=== PATIENT | male | born 1960 ===

== ENCOUNTER 2023-11-09 13:48 | Outpatient (REF) | payer OTHER, SELFPAY ==
--- NOTE | 2023-11-09 13:20 | PROST_PTH ---
PATIENT: David Crystal LOC: [facility] U#:[id number] AGE/SX: 62/M ROOM: RE11/09/[address]: Tony Cross MD : 1960 BED: DIS: 11/09/2023 SPEC #: [id number] RECD: 11/12/23 12:50 STATUS: TISH REConchis #: [id number] SB: 11/09/23 13:[address]: Tony Cross DEPT: Surgical Specimen RECD BY: Latisha Tsang ENTERED: 11/12/23 12:52 SP TYPE: PROST OTHR DR: Selvin Cunningham Tissues: 1 - PROSTATE NEEDLE BIOPSY 2 - PROSTATE NEEDLE BIOPSY 3 - PROSTATE NEEDLE BIOPSY 4 - PROSTATE NEEDLE BIOPSY 5 - PROSTATE NEEDLE BIOPSY 6 - PROSTATE NEEDLE BIOPSY 7 - PROSTATE NEEDLE BIOPSY 8 - PROSTATE NEEDLE BIOPSY 9 - PROSTATE NEEDLE BIOPSY 10 - PROSTATE NEEDLE BIOPSY 11 - PROSTATE NEEDLE BIOPSY 12 - PROSTATE NEEDLE BIOPSY Procedures: GROSS AND MICRO LEVEL 4 Comments: [id number]
== END 2023-11-09 13:49 | disposition home or self-care (01) ==
LOC: LBN 13:48
PROVIDERS: PCP Physician Assistant; Visit Provider Urology
DX: R97.20 Elevated prostate specific antigen [PSA] (principal)
CPT/HCPCS: 88305